=== PATIENT | female | born 1980 | race American Indian/Alaskan Native ===

== ENCOUNTER 2019-12-20 08:43 | Emergency (ER) | payer OTHER, MEDICAID ==
[2019-12-20 08:48] VITALS: BP 136/82
[2019-12-20] MEDS ORDERED: IBUPROFEN 600 MG TAB PO ONE (09:02)
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
== END 2019-12-20 09:30 | disposition home or self-care (01) ==
LOC: ED 08:43
DX: S16.1XXA Strain of muscle, fascia and tendon at neck level, initial encounter (principal); S29.012A Strain of muscle and tendon of back wall of thorax, initial encounter; J45.909 Unspecified asthma, uncomplicated; E28.2 Polycystic ovarian syndrome; Z88.1 Allergy status to other antibiotic agents; Z88.6 Allergy status to analgesic agent; V89.2XXA Person injured in unspecified motor-vehicle accident, traffic, initial encounter; Y93.89 Activity, other specified; Y92.89 Other specified places as the place of occurrence of the external cause; Y99.8 Other external cause status
CPT/HCPCS: 99282